=== PATIENT | female | born 2000 | race Hispanic/Latino ===

== ENCOUNTER 2022-01-07 19:00 | Inpatient (IN) | payer OTHER ==
[2022-01-09] MEDS ORDERED: Misoprostol 100 MCG TAB ONE (14:08)
[2022-01-09] MEDS ORDERED: Ibuprofen 800 MG TAB PO PRN (14:12)
[2022-01-09] MEDS ORDERED: hydrALAZINE 20 MG/ML VIAL SLOW IVP PRN (14:12)
[2022-01-09] MEDS ORDERED: Promethazine HCl 25 MG/ML VIAL IM PRN (14:12)
[2022-01-09] MEDS ORDERED: Carboprost 250 MCG/ML AMP IM PRN (14:12)
[2022-01-09] MEDS ORDERED: Misoprostol 200 MCG TAB PR PRN (14:12)
[2022-01-09] MEDS ORDERED: Ondansetron PF 4 MG/2 ML Vial IVP PRN (14:12)
[2022-01-09] MEDS ORDERED: HYDROcodone/Acetaminophen 5/325 mg Tablet PO PRN (14:12)
[2022-01-09] MEDS ORDERED: Diphenoxylate HCl/Atropine Tablet PO PRN (14:12)
[2022-01-09] MEDS ORDERED: Lidocaine 1% (PF) 30 ML VIAL SC PRN (14:12)
[2022-01-09] MEDS ORDERED: Acetaminophen 500 MG TAB PO PRN (14:12)
[2022-01-09] MEDS ORDERED: NS w/ Oxytocin 30 units 500 ML IV SCH ×2 (14:12)
[2022-01-09 14:28] VITALS: BMI 38.5
[2022-01-09 15:12] LABS: Mean Corpuscular HGB CONC 34.5 g/dL (32.0-36.0); Mean Corpuscular Hemoglobin 30.1 pg (27.0-33.0); Mean Corpuscular Volume 87.2 fl (81.6-98.3); Mean Platelet Volume 10.9 fl (7.4-10.4); Platelet Count 346 10x3/uL (150-450); Red Blood Cell (RBC) Count 3.99 10x6/uL (3.90-5.03); White Blood Cell (WBC) Count 9.1 10x3/uL (3.5-10.5)
[2022-01-09] MEDS ORDERED: Misoprostol 100 MCG TAB PO SCH (15:15)
[2022-01-09 15:30] LABS: Fetal Membranes Rupture No Membranes Rupture (No Rupture)
[2022-01-09 15:43] LABS: SARS-CoV-2 NAA Rapid Test Not Detected (NotDetected)
[2022-01-09 15:43] LABS: HBSAg Index 0.17 S/CO (0-0.99); Hep B Surf Ag Non-Reactive S/CO (NonReactive)
[2022-01-09 15:44] LABS: Syphilis Antibody Nonreactive (Nonreactive); Syphilis Antibody Index 0.03 S/CO (<1.00 Non-Reactive)
[2022-01-09] MEDS ORDERED: Bupivacaine HCl 0.5%/Epinephrine 1:200,000/PF 30 ml Vial ONE (18:07)
[2022-01-09] MEDS ORDERED: Bupivacaine 0.25% HCL 30 ML VIAL ONE (18:07)
[2022-01-09] MEDS ORDERED: ePHEDrine Sulfate 50 MG/10 ML VIAL ONE (18:07)
[2022-01-09] MEDS: Misoprostol 100 MCG TAB PO SCH (18:42)
[2022-01-10] MEDS: Misoprostol 100 MCG TAB PO SCH (02:23)
[2022-01-10] MEDS: Butorphanol Tartrate 1 MG/ML VIAL SLOW IVP PRN ×3 (03:10→15:50)
[2022-01-10] MEDS: Lactated Ringer's 1,000 ML IV SCH (09:45)
[2022-01-10] MEDS ORDERED: Fentanyl 2 mcg/Bup 0.1% Cadd 100 ML ONE (17:51)
[2022-01-10] MEDS ORDERED: Naloxone HCl 0.4 mg/ml Vial IVP PRN ×2 (18:40)
[2022-01-10] MEDS ORDERED: Moisturizing Cream (Eucerin) 113 GM JAR TOP PRN (18:40)
[2022-01-10] MEDS ORDERED: Ondansetron PF 4 MG/2 ML Vial IVP PRN (18:40)
[2022-01-10] MEDS ORDERED: Promethazine HCl 25 MG/ML VIAL IM PRN (18:40)
[2022-01-10] MEDS ORDERED: diphenhydrAMINE 50 MG/ML VIAL IVP PRN (18:40)
[2022-01-10] MEDS ORDERED: Acetaminophen 325 MG TAB PO PRN (18:40)
[2022-01-10] MEDS ORDERED: ePHEDrine Sulfate 50 MG/10 ML VIAL SLOW IVP PRN (18:40)
[2022-01-10] MEDS ORDERED: Communication Order-Pharmacy FS SCH (18:45)
[2022-01-10] MEDS ORDERED: Fentanyl 2 mcg/Bupivacaine 0.1% Cassette 100 ML EPIDURAL SCH (18:45)
[2022-01-10] MEDS ORDERED: Lactated Ringer's 500 ML IV PRN (18:51)
[2022-01-11] MEDS ORDERED: Carboprost 250 MCG/ML AMP ONE (02:26)
[2022-01-11] MEDS ORDERED: Misoprostol 200 MCG TAB ONE (02:26)
[2022-01-11] MEDS ORDERED: Tranexamic Acid 1,000 MG/10 ML VIAL ONE (02:27)
[2022-01-11] MEDS ORDERED: Milk Of Magnesia 30 ML UDCUP PO PRN (02:57)
[2022-01-11] MEDS ORDERED: Bisacodyl 10 MG SUPP PR PRN (02:57)
[2022-01-11] MEDS ORDERED: hydrALAZINE 20 MG/ML VIAL SLOW IVP PRN (02:57)
[2022-01-11 05:23] LABS: #Monocytes 1.1 10x3/uL (0.0-1.1); #Neutrophils 15.7 10x3/uL (1.5-8.4); %Basophils 0.2 % (0.0-2.0); %Eosinophils 0.1 % (0.0-6.0); %Lymphocytes 5.9 % (18.0-47.0); %Monocytes 6.2 % (0.0-10.0); %Neutrophils 86.5 % (40.0-75.0); Hemoglobin 11.1 g/dL (12.0-15.5); Mean Corpuscular HGB CONC 33.6 g/dL (32.0-36.0); Mean Corpuscular Hemoglobin 30.2 pg (27.0-33.0); Mean Corpuscular Volume 89.7 fl (81.6-98.3); Mean Platelet Volume 10.2 fl (7.4-10.4); Platelet Count 284 10x3/uL (150-450); RBC Distribution Width 14.4 % (11.5-14.5); Red Blood Cell (RBC) Count 3.68 10x6/uL (3.90-5.03); White Blood Cell (WBC) Count 18.2 10x3/uL (3.5-10.5)
[2022-01-11] MEDS: Ibuprofen 800 MG TAB PO SCH ×3 (08:21→22:12)
[2022-01-11] MEDS: Boostrix 0.5 ML (Tdap) VIAL (>/=7 yrs of age) IM ONE (09:47)
[2022-01-11] MEDS: Ferrous Sulfate 325 MG TAB PO SCH ×2 (09:47→15:57)
[2022-01-11] MEDS: Misoprostol 100 MCG TAB VAG SCH (09:48)
[2022-01-11] MEDS: Docusate 100 MG CAP PO SCH ×2 (09:48→22:12)
[2022-01-11] MEDS: Lactated Ringer's 1,000 ML IV SCH ×2 (09:48→09:49)
[2022-01-11] MEDS: Misoprostol 100 MCG TAB PO SCH ×2 (09:49→09:50)
[2022-01-12 05:01] LABS: Hemoglobin 9.8 g/dL (12.0-15.5)
[2022-01-12] MEDS: Ibuprofen 800 MG TAB PO SCH ×3 (05:35→21:05)
[2022-01-12] MEDS: Ferrous Sulfate 325 MG TAB PO SCH ×2 (08:46→17:16)
[2022-01-12] MEDS: Docusate 100 MG CAP PO SCH ×2 (08:46→21:04)
[2022-01-12] MEDS ORDERED: Benzocaine-Menthol 82.5 ML CAN TOP PRN (18:37)
[2022-01-13] MEDS: Ibuprofen 800 MG TAB PO SCH (05:21)
[2022-01-13] MEDS: Ferrous Sulfate 325 MG TAB PO SCH (08:28)
[2022-01-13] MEDS: Docusate 100 MG CAP PO SCH (08:28)
[2022-01-13 09:31] VITALS: BP 118/70; TEMP 98.2
[2022-01-13] MEDS: Boostrix 0.5 ML (Tdap) VIAL (>/=7 yrs of age) IM ONE (11:49)
== END 2022-01-13 12:05 | disposition home or self-care (01) | DRG 807 ==
LOC: CSHLD 01-09 12:24 → CSHPP 01-11 08:48
PROVIDERS: ADMIT Family Medicine; ATTEND Family Medicine
PROC: 3E0P7VZ Introduction of Hormone into Female Reproductive, Via Natural or Artificial Opening (ICD-10-PCS; 2022-01-10)
PROC: 3E033VJ Introduction of Other Hormone into Peripheral Vein, Percutaneous Approach (ICD-10-PCS; 2022-01-10)
PROC: 10H07YZ Insertion of Other Device into Products of Conception, Via Natural or Artificial Opening (ICD-10-PCS; 2022-01-10)
PROC: 10D07Z6 Extraction of Products of Conception, Vacuum, Via Natural or Artificial Opening (ICD-10-PCS; principal; 2022-01-11)
PROC: 0KQM0ZZ Repair Perineum Muscle, Open Approach (ICD-10-PCS; 2022-01-11)
DX: O42.02 Full-term premature rupture of membranes, onset of labor within 24 hours of rupture (principal); Z37.0 Single live birth; Z3A.40 40 weeks gestation of pregnancy; Z20.822 Contact with and (suspected) exposure to COVID-19; O69.81X0 Labor and delivery complicated by cord around neck, without compression, not applicable or unspecified; O77.0 Labor and delivery complicated by meconium in amniotic fluid; O70.1 Second degree perineal laceration during delivery
CPT/HCPCS: 36415; 51702; 84112; 85014; 85018; 85025; 85027; 86780; 86850; 86900; 86901; 87340; 90715; J0595; J2405; J2590; J7120; S0020; U0002

== ENCOUNTER 2023-09-16 10:39 | Day surgery (SDC) | payer OTHER ==
[2023-09-16 11:12] VITALS: BMI 36.6
[2023-09-16 12:13] LABS: Fetal Membranes Rupture No Membranes Rupture (No Rupture)
== END 2023-09-16 12:35 | disposition home or self-care (01) ==
LOC: CSHLD/OP 10:39
PROVIDERS: ATTEND Family Medicine
DX: Z03.71 Encounter for suspected problem with amniotic cavity and membrane ruled out (principal); O99.213 Obesity complicating pregnancy, third trimester; Z3A.39 39 weeks gestation of pregnancy; Z79.82 Long term (current) use of aspirin; Z79.899 Other long term (current) drug therapy
CPT/HCPCS: 84112

== ENCOUNTER 2023-09-16 17:02 | Inpatient (IN) | payer OTHER ==
[~2023-09-16 17:02] MED LIST: Bupivacaine 0.25% HCL 30 ML VIAL ONE
[2023-09-16] MEDS ORDERED: hydrALAZINE 20 MG/ML VIAL SLOW IVP PRN ×2 (17:52→18:47)
[2023-09-16 18:22] LABS: Fetal Membranes Rupture RUPTURE DETECTED (No Rupture)
[2023-09-16] MEDS ORDERED: Carboprost 250 MCG/ML AMP IM PRN (18:47)
[2023-09-16] MEDS ORDERED: Misoprostol 200 MCG TAB PR PRN (18:47)
[2023-09-16] MEDS ORDERED: Acetaminophen 500 MG TAB PO PRN (18:47)
[2023-09-16] MEDS ORDERED: Ibuprofen 800 MG TAB PO PRN (18:47)
[2023-09-16] MEDS ORDERED: Tranexamic Acid 1,000 MG/10 ML VIAL IVP PRN (18:47)
[2023-09-16] MEDS ORDERED: Diphenoxylate HCl/Atropine Tablet PO PRN ×2 (18:47)
[2023-09-16] MEDS ORDERED: Lidocaine 1% (PF) 30 ML VIAL SC PRN (18:47)
[2023-09-16] MEDS ORDERED: Methylergonovine 0.2 MG/ML VIAL IM PRN (18:47)
[2023-09-16] MEDS ORDERED: Ondansetron PF 4 MG/2 ML Vial IVP PRN (18:47)
[2023-09-16] MEDS ORDERED: fentaNYL 50 mcg/mL 1 mL Vial SLOW IVP PRN (18:47)
[2023-09-16] MEDS ORDERED: Promethazine HCl 25 MG/ML VIAL IM PRN (18:47)
[2023-09-16] MEDS ORDERED: Oxytocin 30 units/NS 500 ML 500 ML IV SCH ×2 (19:00)
[2023-09-16] MEDS ORDERED: Lactated Ringer's 1,000 ML IV SCH (19:00)
[2023-09-16 19:36] VITALS: BMI 36.6
[2023-09-16 19:43] LABS: Hematocrit 35.4 % (34.9-44.5); Hemoglobin 12.4 g/dL (12.0-15.5); Mean Corpuscular Hemoglobin 30.6 pg (27.0-33.0); Mean Corpuscular Volume 87.4 fL (81.6-98.3); Mean Platelet Volume 10.2 fL (7.4-10.4); Platelet Count 314 10x3/uL (150-450); RBC Distribution Width 13.4 % (11.5-14.5); Red Blood Cell (RBC) Count 4.05 10x6/uL (3.90-5.03); White Blood Cell (WBC) Count 10.7 10x3/uL (3.5-10.5)
[2023-09-16 20:17] LABS: HBsAg Index 0.13 S/CO (0-0.99); Hep B Surf Ag - L&D Non-Reactive S/CO (NonReactive); Syphilis Antibody Nonreactive (Nonreactive); Syphilis Antibody Index 0.03 S/CO (<1.00 Non-Reactive)
[2023-09-16] MEDS: Misoprostol 100 MCG TAB PO SCH (21:37)
[2023-09-17] MEDS: Oxytocin 30 units/NS 500 ML 500 ML IV SCH (01:45)
[2023-09-17] MEDS: fentaNYL/Ropivacaine Epidural 100 ML ONE (03:32)
[2023-09-17] MEDS ORDERED: Ondansetron PF 4 MG/2 ML Vial IVP PRN ×2 (03:58→07:31)
[2023-09-17] MEDS ORDERED: Moisturizing Cream (Eucerin) 113 GM JAR TOP PRN (03:58)
[2023-09-17] MEDS ORDERED: Naloxone HCl 0.4 mg/ml Vial IVP PRN ×2 (03:58)
[2023-09-17] MEDS ORDERED: ePHEDrine Sulfate 50 MG/10 ML VIAL SLOW IVP PRN (03:58)
[2023-09-17] MEDS ORDERED: Lactated Ringer's 500 ML IV PRN (03:58)
[2023-09-17] MEDS ORDERED: diphenhydrAMINE 50 MG/ML VIAL IVP PRN (03:58)
[2023-09-17] MEDS ORDERED: Promethazine HCl 25 MG/ML VIAL IM PRN ×2 (03:58→07:31)
[2023-09-17] MEDS ORDERED: Communication Order-Pharmacy FS SCH (04:00)
[2023-09-17] MEDS ORDERED: fentaNYL 2 mcg/Ropivacaine 0.2% Epidural 100 ML CADD EPIDURAL SCH (04:00)
[2023-09-17] MEDS ORDERED: Lanolin Ointment 7 GM TUBE TOP PRN (07:31)
[2023-09-17] MEDS ORDERED: Preparation H Ointment 28 GM TUBE PR PRN (07:31)
[2023-09-17] MEDS ORDERED: Milk Of Magnesia 30 ML UDCUP PO PRN (07:31)
[2023-09-17] MEDS ORDERED: diphenhydrAMINE 25 MG CAP PO PRN (07:31)
[2023-09-17] MEDS ORDERED: Oxytocin 30 units/NS 500 ML 500 ML IV SCH (07:31)
[2023-09-17] MEDS ORDERED: Bisacodyl 10 MG SUPP PR PRN (07:31)
[2023-09-17] MEDS ORDERED: hydrALAZINE 20 MG/ML VIAL SLOW IVP PRN (07:31)
[2023-09-17] MEDS ORDERED: Boostrix 0.5 ML (Tdap) VIAL (>/=7 yrs of age) IM ONE (07:31)
[2023-09-17] MEDS: Acetaminophen 325 MG TAB PO PRN (11:11)
[2023-09-17] MEDS: Docusate 100 MG CAP PO SCH (12:43)
[2023-09-17] MEDS: Prenatal Vitamin 1 TAB PO SCH (12:43)
[2023-09-17] MEDS: Ferrous Sulfate 325 MG TAB PO SCH (12:43)
[2023-09-17] MEDS: Ibuprofen 800 MG TAB PO SCH (13:06)
[2023-09-17] MEDS: Benzocaine-Menthol 82.5 ML CAN TOP PRN (13:13)
[2023-09-18 08:03] VITALS: BP 108/62; TEMP 98.5
== END 2023-09-18 11:50 | disposition home or self-care (01) | DRG 807 ==
LOC: CSHLD/OP 17:02 → CSHLD 18:47 → CSHPP 09-17 10:45 → UNDODISIN 09-17 13:50
PROVIDERS: ADMIT Family Medicine; ATTEND Family Medicine
PROC: 10E0XZZ Delivery of Products of Conception, External Approach (ICD-10-PCS; principal; 2023-09-17)
DX: O99.214 Obesity complicating childbirth (principal); Z37.0 Single live birth; Z79.82 Long term (current) use of aspirin; Z79.899 Other long term (current) drug therapy; Z3A.39 39 weeks gestation of pregnancy; O99.213 Obesity complicating pregnancy, third trimester
CPT/HCPCS: 36415; 51702; 84112; 85027; 86780; 86850; 86900; 86901; 87340; 99285; J0665; J2590